=== PATIENT | female | born 1970 | race Caucasian/White ===

== ENCOUNTER 2020-03-28 08:44 | Outpatient (CLI) | payer BC, SELFPAY ==
--- NOTE | ~2020-03-28 | XR_ITS ---
XR shoulder LT min 2V 03/28/2020 09:18 INDICATION: Left shoulder pain PROCEDURE: 4 views left shoulder COMPARISON: No prior studies for comparison. FINDINGS: Fracture, dislocation or subluxation is not identified. The soft tissues appear within norm al limits. No foreign bodies are identified. IMPRESSION: 1: NO ACUTE BONE OR JOINT ABNORMALITY IDENTIFIED. Reviewed, dictated and finalized at location A.
== END 2020-03-28 08:45 | disposition home or self-care (01) ==
PROVIDERS: PCP Internal Medicine
DX: M25.512 Pain in left shoulder (principal); M75.42 Impingement syndrome of left shoulder
CPT/HCPCS: 73030